=== PATIENT | male | born 1980 | race Caucasian/White ===

== ENCOUNTER 2018-06-07 20:33 | Emergency (ER) | payer BC ==
[~2018-06-07] VITALS: Ht 185.4 cm; Wt 99.1 kg
[2018-06-07 20:35] VITALS: TEMP 98
[2018-06-07 21:16] LABS: ALANINE AMINOTRANSFERASE 55 U/L (21-72); ALBUMIN 4.5 gm/dL (3.5-5.0); ALKALINE PHOSPHATASE 67 U/L (50-136); ANION GAP 14 mmol/L (7-16); AST,SGOT 24 U/L (15-37); BILIRUBIN,TOTAL 0.4 mg/dL (0.0-1.0); BLOOD UREA NITROGEN 16 mg/dL (9-20); CALCIUM 9.1 mg/dL (8.4-10.2); CARBON DIOXIDE 28 mmol/L (22-30); CHLORIDE 98 mmol/L (98-107); CREATININE, serum 0.98 mg/dL (0.66-1.25); GLUCOSE 112 mg/dL (74-106); LIPASE 94 U/L (23-300); POTASSIUM 4.1 mmol/L (3.4-5.0); SODIUM 141 mmol/L (137-145); TOTAL PROTEIN 7.8 gm/dL (6.4-8.2)
[2018-06-07 21:18] LABS: BASO # 0.1 (0.0-0.2); BASO % 0.5 % (0.0-2.0); EOS # 0.4 (0.0-0.7); EOS % 3.2 % (0-4.0); GRAN # 5.7 (1.4-6.5); GRAN % 51.6 % (42.2-75.2); HEMATOCRIT 46.2 % (42.0-52.0); HEMOGLOBIN 15.7 g/dl (13.5-18.0); LYMPH # 4.3 (1.2-3.4); LYMPH % 38.5 % (20.0-51.0); MEAN CELL VOLUME 87 fl (80.0-100.0); MEAN CORPUSCULAR HEMOGLOBIN 30 pg (27.0-31.0); MEAN CORPUSCULAR HGB CONC 34 g/dl (33.0-37.0); MEAN PLATELET VOLUME 10.1 fl (7.4-10.4); MONO # 0.6 (0.1-0.6); MONO % 5.8 % (1.7-9.3); PLATELET COUNT 218 K/mm3 (130-400); RED BLOOD COUNT 5.31 M/mm3 (4.20-5.60)
[2018-06-07 21:29] LABS: TROPONIN-I < 0.012 ng/mL (0.000-0.034)
[2018-06-07] MEDS ORDERED: ANTIVERT 25MG25 MG PO (21:58)
[2018-06-08 00:25] VITALS: BP 118/82; PULSE 77
== END 2018-06-08 00:30 | disposition home or self-care (01) ==
LOC: COL.ER 20:33
PROVIDERS: Emergency Medicine
DX: R07.89 Other chest pain (principal); R42 Dizziness and giddiness; F17.210 Nicotine dependence, cigarettes, uncomplicated
CPT/HCPCS: J2060; J7030

== ENCOUNTER 2020-02-03 19:35 | Emergency (ER) | payer BC ==
[~2020-02-03] VITALS: Ht 185.4 cm; Wt 100.0 kg
[~2020-02-03 19:35] MED LIST: ANTIVERT 25MG25 MG PO
[2020-02-03 19:54] VITALS: TEMP 98.6
[2020-02-03 20:36] VITALS: BP 123/85; PULSE 98
[2020-02-03] MEDS ORDERED: NORCO 325 MG-51 TAB PO (20:38)
== END 2020-02-03 20:56 | disposition home or self-care (01) ==
LOC: COL.ER 19:35
DX: S92.422A Displaced fracture of distal phalanx of left great toe, initial encounter for closed fracture (principal); F17.210 Nicotine dependence, cigarettes, uncomplicated; Z23 Encounter for immunization; W22.8XXA Striking against or struck by other objects, initial encounter; Y92.009 Unspecified place in unspecified non-institutional (private) residence as the place of occurrence of the external cause